=== PATIENT | male | born 1955 | race Caucasian/White ===

== ENCOUNTER 2020-10-16 09:37 | Day surgery (SDC) | payer MEDICARE, SELFPAY ==
[2020-10-09 14:12] VITALS: BMI 26.2
--- NOTE | 2020-10-15 10:19 | P.CONAN_ITS ---
Documented by User: Cris Cantu NP 10/15/20 10:19 HPI - Anesthesia Eval Consult details Narrative: 64yo M for Colonoscopy [facility] Past Medical History Medical History Abnormal laboratory test result Consumes three beers daily COVID-19 vaccine series completed Exercises daily Subarachnoid hemorrhage Surgical History Surgical History H/O colonoscopy Hx of arthroscopic knee surgery Social History Social History Are you a primary day care aide to a significant other at home: No Do you presently have visiting nurse or other home services: No Patient Tobacco Use Status: Never used Tobacco Use of substances other than those prescribed or required for medical reasons: No Have you been hit, kicked, punched, or otherwise hurt by someone within the past year? If so, by whom?: No Are you DNR?: No Advance Directives Information Provided: Yes (states is his ) Advance Directives on File: No Recently lost weight without trying: No Eating poorly because of decreased appetite: No Nutrition Risks: No Nutritional Risk Poor oral hygiene: No Meds Allergies Allergy/AdvReac Type Severity Reaction Status Date / Time amoxicillin Allergy Intermediate Rash Verified 10/16/20 09:52 bee pollen [bee stings] Allergy Intermediate Swelling Verified 10/16/20 09:52 Home Medications Medication Instructions Recorded Confirmed Last Taken Type No Known Home Meds 10/09/20 10/09/20 Unknown History Exam Exam Date and Time: October 15, 2020 1019 Height,Weight and Vital Signs: Height 5 ft 10 in Weight 83.007 kg Assessment and Plan Assessment Anesthesia Assessment: Chart Reviewed Documented by User: Martha Pendleton MD 10/16/20 11:20 [facility] Past Medical History Medical History Abnormal laboratory test result Consumes three beers daily COVID-19 vaccine series completed Exercises daily Subarachnoid hemorrhage Family History Family history of problems with anesthesia: No Surgical History Surgical History H/O colonoscopy Hx of arthroscopic knee surgery History of Problems with Anesthesia: No Social History Social History Are you a primary day care aide to a significant other at home: No Do you presently have visiting nurse or other home services: No Patient Tobacco Use Status: Never used Tobacco Use of substances other than those prescribed or required for medical reasons: No Have you been hit, kicked, punched, or otherwise hurt by someone within the past year? If so, by whom?: No Are you DNR?: No Advance Directives Information Provided: Yes (states is his ) Advance Directives on File: No Recently lost weight without trying: No Eating poorly because of decreased appetite: No Nutrition Risks: No Nutritional Risk Poor oral hygiene: No Meds Allergies Allergy/AdvReac Type Severity Reaction Status Date / Time amoxicillin Allergy Intermediate Rash Verified 10/16/20 09:52 bee pollen [bee stings] Allergy Intermediate Swelling Verified 10/16/20 09:52 Home Medications Medication Instructions Recorded Confirmed Last Taken Type No Known Home Meds 10/09/20 10/09/20 Unknown History Exam Airway Mallampati Class: II TM Dist: >3cm Neck ROM: Full Heart: rrr Lungs: cta Assessment and Plan Assessment Anesthesia Assessment: Anesthesia Plan Discussed and Chart Reviewed Final Anesthetic Review Family History of Problems with Anesthesia: No History of Problems with Anesthesia: No NPO: Yes ASA Class: II Final Preanesthetic Review: No Changes in Pt Med Stat, Meds/Allgs Chart Reviewed and Consent Obtained/Reviewed Patient Risk: Intermediate Procedure Risk: Intermediate Anesthetic Plan Anesthetic Plan: MAC: Disposition: Standard PACU
[2020-10-16 10:01] VITALS: BP 130/71; PULSE 53; RESP 18; TEMP 36.4; O2SAT 99
[2020-10-16] MEDS: Lactated Ringers 1,000 ML 100 ML IVCONT (10:11)
[2020-10-16 12:50] VITALS: BP 109/66; PULSE 58; RESP 18; TEMP 36.2; O2SAT 96
--- NOTE | 2020-10-16 12:52 | P.BOP_ITS ---
Brief Operative Note Date of Service: 10/16/20 Pre-op diagnosis: Screening Post-op diagnosis: other (Diverticulosis) Procedure: Colonoscopy to the cecum and TI Surgeon: Derek Alvarado Anesthesia: MAC Was an [employer] used for this Procedure?: No Estimated blood loss (mL): 0 Pathology: none sent Condition: stable Disposition: PACU
--- NOTE | 2020-10-16 13:03 | OP_ITS ---
SURGEON: Derek Alvarado MD INDICATIONS: The patient presents for evaluation of personal history of tubular adenoma of the colon and colorectal cancer screening. Full consent has been obtained from him for this, including risks of bleeding and perforation. PREOPERATIVE DIAGNOSIS: POSTOPERATIVE DIAGNOSIS: PROCEDURE PERFORMED: Colonoscopy to cecum and terminal ileum. ESTIMATED BLOOD LOSS: COMPLICATIONS: ANESTHESIA: Monitored anesthesia care. ASSISTANTS: SPECIMENS: PREOPERATIVE DIAGNOSES: Colorectal cancer screening and personal history of tubular adenoma of the colon. POSTOPERATIVE DIAGNOSES: Colorectal cancer screening and personal history of tubular adenoma of the colon, diverticulosis and internal hemorrhoids. DESCRIPTION OF PROCEDURE: The patient was placed in the left lateral decubitus position. The digital rectal exam revealed no abnormalities. The Olympus video pediatric colonoscope was entered into the rectum and advanced easily to the cecum. Once in the cecum, I did identify normal-appearing cecal pouch with appendiceal orifice and a normal-appearing ileocecal valve. The terminal ileum was cannulated and appeared normal. The scope was withdrawn back in the colon. The entire cecum and ileocecal valve appeared normal. The scope was then slowly withdrawn assessing all mucosal surfaces carefully. Preparation was excellent. I did not visualize any sign of polyps, colitis, nor angiodysplasia. There was a mild amount of sigmoid diverticulosis. In the rectum, scope was retroflexed visualizing small internal hemorrhoids, but no other pathology. The rectal mucosa appeared normal. The scope was straightened out and withdrawn from the patient. He tolerated the procedure well and was returned to the recovery area in stable condition. IMPRESSION: 1. Diverticulosis. 2. Internal hemorrhoids. PLAN: Given the previous history of a tubular adenoma, I would recommend a followup colonoscopy in 5 years. He will otherwise see me on a p.r.n. basis. MD PRASANNA Zhong/KENJI / [id number]
[2020-10-16 13:05] VITALS: BP 116/67; PULSE 55; RESP 18; TEMP 36.2; O2SAT 97
== END 2020-10-16 13:34 | disposition home or self-care (01) ==
PROVIDERS: PCP Internal Medicine; Visit Provider Internal Medicine
PROC: 0DJD8ZZ Inspection of Lower Intestinal Tract, Via Natural or Artificial Opening Endoscopic (ICD-10-PCS; CPT 45378; principal; 2020-10-16 10:50)
DX: Z12.11 Encounter for screening for malignant neoplasm of colon (principal); Z86.010 Personal history of colon polyps; K57.30 Diverticulosis of large intestine without perforation or abscess without bleeding; K64.8 Other hemorrhoids; Z79.82 Long term (current) use of aspirin; Z88.0 Allergy status to penicillin
CPT/HCPCS: G0105